=== PATIENT | female | born 1980 | race Caucasian/White ===

== ENCOUNTER → 2017-09-21 08:28 | Outpatient (CLI) | payer OTHER, SELFPAY ==
[2017-09-21 10:15] LABS: Absolute Lymphocyte Count 1.53 X10^3/ul (0.83-4.51); Absolute Neutrophil Count 3.9 X10^3/uL (2.0-7.7); Basophil# 0.01 X10^3/uL; Basophil% 0.2 % (0-1); Eosinophil# 0.33 X10^3/uL; Eosinophils% 5.4 % (0-5); Hematocrit 38.4 % (37-47); Hemoglobin 12.4 g/dl (12.0-15.0); Lymphocyte # 1.53 X10^3/ul (4.0); Lymphocyte % 25.1 % (19-41); Mean Corp Hgb Conc 32.3 g/gl (32-36); Mean Corpuscular Hgb 29.5 pg (27.0-32.0); Mean Corpuscular Volume 91.2 fL (81-99); Mean Platelet Vol. 11.4 fl (6.2-12.0); Monocyte# 0.36 X10^3/uL; Monocyte% 5.9 % (0-10); Neutrophil # 3.86 X10^3/uL (2.7-7.7); Neutrophil % 63.2 % (47-70); Platelet Count 264 K/mm3 (150-450); RBC Distribution Width CV 13.3 % (11.6-14.6); RBC Distribution Width SD 44.3 fl (35.1-43.9); Red Blood Count 4.21 M/mm3 (4.2-5.4); White Blood Count 6.1 K/mm3 (4.4-11.0)
[2017-09-21 10:17] LABS: POSITIVE COUNT NO; POSITIVE DIFFERENTIAL NO; POSITIVE MORPHOLOGY NO
[2017-09-21 10:51] LABS: ALB/GLOB Ratio 0.9 RATIO (0.9-2.4); AST(SGOT) 18 U/L (15-37); Alanine Aminotransfer ALT/SGPT 23 U/L (13-56); Albumin, Serum 3.5 g/dL (3.2-5.0); Alkaline Phosphatase 58 U/L (45-117); Anion Gap 11 (5-15); BUN 12 mg/dL (7-18); BUN/Creat Ratio 15.2 RATIO (10-20); Calcium,Total 8.6 mg/dL (8.5-10.1); Chloride 103 mmol/L (98-107); Cholesterol 147 mg/dL (200); Creatinine, Serum 0.79 mg/dL (0.55-1.02); EST Glomerular Filtration Rate 88 mL/min (>60); Est Glom Filt Rate - Afr Amer 107 mL/min (>60); Globulin 4.1 g/dL (2.2-4.2); Glucose 79 mg/dL (74-106); Potassium 3.8 mmol/L (3.5-5.1); Protein, Total 7.6 g/dL (6.4-8.2); Sodium Level 142 mmol/L (136-145); Thyroid Stim Hormone (TSH) 1.32 uIU/mL (0.358-3.74)
== END ==
PROVIDERS: Family Provider Family Medicine; PCP Family Medicine; Visit Provider Nurse Practitioner Family
DX: Z00.00 Encounter for general adult medical examination without abnormal findings (principal); R53.83 Other fatigue
CPT/HCPCS: 36415; 80053; 82465; 84443; 85025

== ENCOUNTER → 2018-03-29 07:05 | Outpatient (CLI) | payer OTHER, SELFPAY ==
--- NOTE | 2018-03-29 07:10 | BI_ITS ---
MAMMOGRAPHY - BILATERAL SCREENING REASON FOR EXAM: Female, 37 years old. Routine annual screening examination. PERTINENT HISTORY: Mother with breast cancer. Aunt with breast cancer. TECHNIQUE: Digital bilateral breast debra (3D mammographic acquisition) in the CC and MLO projections. 2-D mediolateral oblique (MLO) and craniocaudad (CC) views of both breasts were obtained. CAD: Full Field Digital Mammography with Computer Added Detection was performed. COMPARISON: None. Baseline examination. FINDINGS: Breast Composition: There are scattered areas of fibroglandular density. There is a 7 mm x 8 mm well-defined nodule in the superior lateral portion of the left breast. A central notch is seen. This may represent a small lymph node. Correlation with ultrasound is recommended. No other significant abnormalities are identified. BI/SCREENING MAMM (CAD), BILAT IMPRESSION: 7 mm x 8 mm nodule in the left breast as described. Correlation with ultrasound is recommended. ASSESSMENT CATEGORY: BIRADS Category 0: Incomplete. Need additional imaging evaluation. A letter regarding these results will be sent to the patient by the facility within 30 days. Approximately 10% of breast cancers are not detected by mammography. A normal mammogram should not delay biopsy of a clinically suspicious abnormality. [id number] Electronically Signed: Leonard Pedraza MD at 14:24 EST , Service support ,
== END ==
PROVIDERS: Family Provider Family Medicine; PCP Family Medicine; Referring Provider Obstetrics & Gynecology; Visit Provider Obstetrics & Gynecology
DX: Z12.31 Encounter for screening mammogram for malignant neoplasm of breast (principal); N64.4 Mastodynia; Z80.3 Family history of malignant neoplasm of breast
CPT/HCPCS: 77063; 77067

== ENCOUNTER → 2018-04-02 08:01 | Outpatient (CLI) | payer OTHER, SELFPAY ==
--- NOTE | 2018-04-02 08:03 | US_ITS ---
STUDY: ULTRASOUND BREAST - LEFT REASON FOR EXAM: Female, 37 years old. Abnormal screening mammogram. TECHNIQUE: Axial and longitudinal images of the LEFT breast were performed with a high resolution ultrasound transducer. COMPARISON: Comparison is made with prior mammogram dated March 29, 2018. FINDINGS: LEFT Breast: The palpable abnormality corresponds to a 1.2 cm x 0.8 cm x 0.5 cm hypoechoic nodule with central fatty hilum suggestive of a significant lymph node. This is at the 2:00 position of the breast at 2 cm from the nipple. A similar-appearing nodule measuring 1.2 cm x 0.5 cm x 0.5 cm seen at the 1:00 position of the breast at 3 cm from nipple. US/Breast Limited Unilateral IMPRESSION: Sonographic findings suggestive of 2 small lymph nodes. Routine annual mammographic follow-up recommended. ASSESSMENT CATEGORY: BIRADS Category 2: Benign. A letter regarding these results will be sent to the patient by the facility within 30 days. Electronically Signed: Leonard Pedraza MD at 13:24 EST , Service support ,
== END ==
PROVIDERS: Family Provider Family Medicine; PCP Family Medicine; Referring Provider Obstetrics & Gynecology; Visit Provider Obstetrics & Gynecology
DX: R92.8 Other abnormal and inconclusive findings on diagnostic imaging of breast (principal)
CPT/HCPCS: 76642

== ENCOUNTER → 2018-08-26 10:53 | Outpatient (CLI) | payer OTHER, SELFPAY ==
--- NOTE | 2018-08-26 11:30 | MRI_ITS ---
STUDY: BILATERAL BREAST MR WITHOUT AND WITH CONTRAST REASON FOR EXAM: Female, 37 years old. Strong family history of breast cancer in mother, sister and aunts. TECHNIQUE: Multi-sequence multi-echo imaging of both breasts was performed with a dedicated breast coil. T1-weighted and T2-weighted images were performed before the administration of contrast. T1-weighted images were also performed after the administration of 20 IV Dotarem without complications. COMPARISON: Mammograms dated March 29, 2018 and left breast ultrasound dated April 02, 2018. FINDINGS: RIGHT BREAST: The breast tissue is fatty with minimal background enhancement. There is an ovoid enhancing circumscribed mass measuring 6 mm x 3 mm in the upper outer quadrant of the right breast most compatible with a fibroadenoma. This mass has no aggressive features and I believe can be seen on the mammogram as an ill-defined partially obscured low density mass. There is also a 5 mm in diameter circumscribed mass in the medial aspect of the right breast approximately 3.2 cm behind the nipple and approximately 1 cm medial to the nipple. This also has the appearance of a fibroadenoma and likely is seen on the mammogram as a partially obscured low density mass. Attention to these 2 areas can be paid when the patient returns for her mammogram. The areas thought to represent these nonaggressive lesions has been circled on the mammograms. LEFT BREAST: The breast tissue is fatty with no background enhancement. There are no abnormal enhancing masses or areas of non-mass enhancement in the left breast. There are no enlarged or abnormal lymph nodes. There is no abnormality in the visualized regions of the chest or liver. MRI/Breast Bilateral W/O and W IMPRESSION: 2 circumscribed lesions in the right breast, one measuring 6 mm and one measuring 5 mm, likely representing small fibroadenomas. Attention to these areas when the patient returns for mammography is recommended. CATEGORY: BIRADS Category 3: Probably Benign - Short-Interval Follow-up Suggested. A letter regarding these results will be sent to the patient by the facility within 30 days. Electronically Signed: Gurmeet Haro MD at 18:45 EDT , Service support ,
== END ==
PROVIDERS: Family Provider Family Medicine; PCP Family Medicine; Referring Provider Obstetrics & Gynecology; Visit Provider Obstetrics & Gynecology
DX: Z80.3 Family history of malignant neoplasm of breast (principal)
CPT/HCPCS: 77049; A9575; A4216; C8908

== ENCOUNTER → 2018-09-09 10:56 | Outpatient (CLI) | payer BC, SELFPAY ==
[2018-09-07 15:53] VITALS: BMI 34.2
--- NOTE | 2018-09-09 11:02 | US_ITS ---
STUDY: ULTRASOUND BREAST - RIGHT REASON FOR EXAM: Female, 37 years old. Abnormal MRI of the breast. TECHNIQUE: Axial and longitudinal images of the RIGHT breast were performed with a high resolution ultrasound transducer. COMPARISON: Comparison is made with prior mammogram dated August 26, 2018. FINDINGS: RIGHT Breast: There is a 5 mm x 5 mm x 3 mm well-defined hypoechoic nodule in the retroareolar region of the right breast. This most likely advance a fibroadenoma. There is also evidence of a 7 mm x 4 mm x 3 mm hypoechoic nodule with a central echogenic hilum at the 9:00 position of the breast at 3 cm from nipple. This most likely represents a small lymph node. Dilated retroareolar ducts. US/Breast Limited Unilateral IMPRESSION: 5 mm x 5 mm x 3 mm well-defined hypoechoic nodule in the retroareolar region of the breast. This most likely represents a small fibroadenoma. Second nodule measuring 7 mm x 4 mm x 3 mm at the 9:00 position breast at 3 cm from the nipple most likely present and a small left Dilated subareolar ducts. ASSESSMENT CATEGORY: BIRADS Category 2: Benign. A letter regarding these results will be sent to the patient by the facility within 30 days. Electronically Signed: Leonard Pedraza, at 14:26 EDT , Service support ,
== END ==
PROVIDERS: Family Provider Family Medicine; PCP Family Medicine; Referring Provider Surgery; Visit Provider Surgery
DX: R92.8 Other abnormal and inconclusive findings on diagnostic imaging of breast (principal)
CPT/HCPCS: 76642

== ENCOUNTER → 2018-09-16 09:54 | Outpatient (CLI) | payer BC, SELFPAY ==
--- NOTE | 2018-09-16 | IMM_PTH ---
PATIENT: GUERRERO DAIGLE LOC: [facility] U#:[id number] AGE/SX: 44/F ROOM: RE09/16/[address]: Dr. Marcelino Guzmán MD : 1980 BED: DIS: SPEC #: [id number] RECD: 09/17/18 13:07 STATUS: BRET DANNY #: [id number] BERNICE: 09/16/18 00:[address]: Marcelino Guzmán DEPT: IMMUNOHISTOCHEMISTRY RECD BY: Riri Gregorio ENTERED: 09/17/18 13:08 SP TYPE: IMMUNO OTHR DR: Dr. Gopal Rose MD Tissues: A - Right breast, NOS B - Right breast, NOS Procedures: P53 (initial) CALPONIN-1 (add) CD20 (add) CD45 (add) CD5 (add) CD79A (add) P40 (add) CD3 (initial) PHYSICIAN & INSTITUTION [place] [id number] SPECIMEN INFORMATION: Tissue Source: A - Right breast tissue 9 o'clock, B - Right breast tissue 3 o'clock retroareolar Clinical Info: Abnormal right breast ultrasound Specimen Number: [id number] A & B CPT code: 70849 x2, 61248 x6 METHODOLOGY: Deparaffinized sections of prefer/formalin-fixed tissue or PAP/DQ stained slides are incubated with monoclonal/polyclonal antibodies/oligonucleotide probes. Localization is made via biotin free immunoperoxidase method. Appropriate controls are performed and reacted as expected. Results on target cell population are indicated in the following table: RESULTS: ANTIBODY / CLONE RESULT Block A CD3 (PS1) positive CD5 (SP10) positive CD20 (L26) positive, focal CD45 (RP2/18) positive CD79a (11E3) positive, focal Block B P53 (DO-7) negative Calponin-1 (DW616C) positive P40 (BC28) positive These tests were developed and their performance characteristics determined by [facility]. They may not have been cleared or approved by the [place]. Food and Drug Administration. The FDA has determined that such clearance or approval is not necessary. INTERPRETATION: A. Right breast tissue 9 o'clock, biopsy: Benign lymphoid tissue. B. Right breast tissue 3 o'clock retroareolar, biopsy: Consistent with adenosis. AM:whit 09/17/18
--- NOTE | 2018-09-16 08:20 | BRBX_PTH ---
PATIENT: GUERRERO DAIGLE LOC: [facility] U#:[id number] AGE/SX: 44/F ROOM: RE09/16/[address]: Dr. Marcelino Guzmán MD : 1980 BED: DIS: SPEC #: [id number] RECD: 09/16/18 09:41 STATUS: BRET DANNY #: [id number] BERNICE: 09/16/18 08:[address]: Marcelino Guzmán DEPT: SURGICAL PATHOLOGY RECD BY: Bg Mcgrath ENTERED: 09/16/18 11:30 SP TYPE: BREAST BX LAURA DR: Dr. Gopal Rose MD Tissues: A - Right breast, NOS B - Right breast, NOS Procedures: Surgery Specimen Level IV HEADER OPERATION: Right breast biopsy x2 PRE-OP DIAGNOSIS: Abnormal right breast ultrasound TISSUE SUBMITTED: A - Right breast tissue 9 o'clock, B - Right breast tissue 3 o'clock retroareolar MICROSCOPIC DIAGNOSIS A. Right breast at 9 o'clock, ultrasound-guided core biopsy: Benign lymphoid tissue with reactive change. See comment. B. Right breast tissue at 3 o'clock, retroareolar, ultrasound-guided core biopsy: Adenosis. Focal microcalcifications. Focal intraductal hyperplasia without atypia. Mild fibrocystic change. No evidence of malignancy. See comment. AM:whit 09/17/18 COMMENT A & B. Immunohistochemistry ([id number]) supports the above diagnosis. MICROSCOPIC DESCRIPTION Slides are reviewed. GROSS DESCRIPTION A - Received in fixative is one container labeled with the patient's name and designated right breast 9 o'clock. The specimen consists of multiple elongated fragments of martinez-yellow fibroadipose tissue that in aggregate measure 0.7 x 0.5 x 0.1 cm. The entire specimen is submitted in one cassette. B - Received in fixative is one container labeled with the patient's name and designated right breast 3 o'clock. The specimen consists of multiple elongated fragments of martinez-yellow fibroadipose tissue that in aggregate measure 1.5 x 0.2 x 0.1 cm. The entire specimen is submitted in one cassette. / KHALIF:whit 09/16/18 TC:5 CPT: 99493 x2
[2018-09-16 08:57] VITALS: BMI 34.2
== END ==
PROVIDERS: Family Provider Family Medicine; PCP Family Medicine; Referring Provider Surgery; Visit Provider Surgery
DX: R92.8 Other abnormal and inconclusive findings on diagnostic imaging of breast (principal)
CPT/HCPCS: 88305; 88341; 88342

== ENCOUNTER → 2019-09-09 08:50 | Outpatient (CLI) | payer BC, SELFPAY ==
[2018-09-16 08:57] VITALS: BMI 34.2
[2019-09-09 10:17] LABS: ALB/GLOB Ratio 0.8 RATIO (0.9-2.4); AST(SGOT) 35 U/L (15-37); Alanine Aminotransfer ALT/SGPT 75 U/L (13-56); Albumin, Serum 3.6 g/dL (3.2-5.0); Alkaline Phosphatase 69 U/L (45-117); Anion Gap 5 (5-15); BUN 12 mg/dL (7-18); CRP, High Sensitivity Cardiac 1.62 mg/L; Calcium,Total 8.9 mg/dL (8.5-10.1); Chloride 106 mmol/L (98-107); Cholesterol 170 mg/dL (200); Creatinine, Serum 0.92 mg/dL (0.55-1.02); EST Glomerular Filtration Rate 73 mL/min (>60); Est Glom Filt Rate - Afr Amer 88 mL/min (>60); Globulin 4.6 g/dL (2.2-4.2); Glucose 89 mg/dL (74-106); High Density Lipoprotein 60 mg/dL; Potassium 4.1 mmol/L (3.5-5.1); Protein, Total 8.2 g/dL (6.4-8.2); Sodium Level 138 mmol/L (136-145); Triglycerides 94 mg/dL; Very Low Density Lipoprotein 19 mg/dL (5-40)
== END ==
PROVIDERS: PCP Family Medicine; Referring Provider Family Medicine; Visit Provider Family Medicine
DX: R94.31 Abnormal electrocardiogram [ECG] [EKG] (principal); Z82.49 Family history of ischemic heart disease and other diseases of the circulatory system
CPT/HCPCS: 36415; 80053; 80061; 86141

== ENCOUNTER → 2019-09-15 09:08 | Outpatient (CLI) | payer BC, SELFPAY ==
[2018-09-16 08:57] VITALS: BMI 34.2
[2019-09-15 11:40] LABS: Hepatitis B Surface Antibody Non-Reactive; Hepatitis B Surface Antigen Non-Reactive (Nonreactive); Hepatitis C Antibody Non-Reactive (Nonreactive)
== END ==
PROVIDERS: PCP Family Medicine; Referring Provider Family Medicine; Visit Provider Family Medicine
DX: R79.89 Other specified abnormal findings of blood chemistry (principal)
CPT/HCPCS: 36415; 86706; 86803; 87340

== ENCOUNTER → 2023-06-03 | Outpatient (CLI) | payer BC, SELFPAY ==
[2023-06-03 16:48] LABS: Absolute Lymphocyte Count 2.28 X10^3/uL (0.83-4.51); Absolute Neutrophil Count 5.2 X10^3/uL (2.0-7.7); Basophil# 0.02 X10^3/uL; Basophil% 0.2 % (0-1); Eosinophil# 0.43 X10^3/uL; Eosinophils% 5.1 % (0-5); Hematocrit 38.9 % (37-47); Hemoglobin 12.3 g/dL (12.0-15.0); Lymphocyte # 2.28 X10^3/ul (0.83-4.51); Lymphocyte % 26.9 % (19-41); Mean Corp Hgb Conc 31.6 g/dL (32-36); Mean Corpuscular Hgb 27.6 pg (27.0-32.0); Mean Corpuscular Volume 87.2 fL (81-99); Mean Platelet Vol. 10.9 fl (6.2-12.0); Monocyte# 0.56 X10^3/uL; Monocyte% 6.6 % (0-10); NRBC Flagged by Analyzer 0 % (0-5); Neutrophil # 5.17 X10^3/uL (2.7-7.7); Neutrophil % 61.1 % (47-70); Platelet Count 338 K/mm3 (150-450); RBC Distribution Width CV 14.3 % (11.6-14.6); Red Blood Count 4.46 M/mm3 (4.2-5.4); White Blood Count 8.5 K/mm3 (4.4-11.0)
[2023-06-03 17:20] LABS: AST(SGOT) 23 U/L (15-37); Alanine Aminotransfer ALT/SGPT 27 U/L (13-56); Albumin, Serum 3.5 g/dL (3.2-5.0); Alkaline Phosphatase 75 U/L (45-117); Globulin 4.5 g/dL (2.2-4.2)
[2023-06-03 18:03] LABS: HIV - WCH Non-Reactive (Nonreactive); Hepatitis B Surface Antibody Non-Reactive; Hepatitis B Surface Antigen Non-Reactive (Nonreactive); Hepatitis C Antibody Non-Reactive (Nonreactive)
[2023-06-05 12:09] LABS: Hepatitis B Core Ab Total Negative (Negative); QNTFERON TB Mitogen Value > 10.00 IU/mL (.); QNTFERON TB Nil Value 0.03 IU/mL (.); QNTFERON TB1+ Ag Value 0.03 IU/mL (.); QNTFERON TB2+ Ag Value 0.04 IU/mL (.); QNTIFERON TB Positive Criteria Negative (Negative)
== END | disposition home or self-care (01) ==
PROVIDERS: PCP Family Medicine; Visit Provider Dermatology
DX: L40.0 Psoriasis vulgaris (principal); L40.4 Guttate psoriasis; D22.5 Melanocytic nevi of trunk; L82.1 Other seborrheic keratosis; Z71.89 Other specified counseling; Z79.899 Other long term (current) drug therapy
CPT/HCPCS: 36415; 80076; 85025; 86480; 86703; 86704; 86706; 86803; 87340

== ENCOUNTER → 2023-11-27 | Outpatient (CLI) | payer OTHER, SELFPAY ==
[2023-12-02 09:09] LABS: HPV APTIMA, High Risk Negative (Negative)
== END | disposition home or self-care (01) ==
LOC: LABSPEC 11:09
PROVIDERS: PCP Family Medicine; Referring Provider Advanced Practice Midwife; Visit Provider Advanced Practice Midwife
DX: Z12.4 Encounter for screening for malignant neoplasm of cervix (principal)
CPT/HCPCS: 87624; 88175; G0145

== ENCOUNTER → 2024-08-17 | Outpatient (CLI) | payer OTHER, SELFPAY ==
[2024-08-17 09:29] LABS: Hematocrit 39.7 % (37-47); Hemoglobin 12.7 g/dL (12.0-15.0); Immature Granulocytes Count 0.020 X10^3/uL (0.0-0.0); Mean Corp Hgb Conc 32.0 g/dL (32-36); Mean Corpuscular Volume 88.2 fL (81-99); Mean Platelet Vol. 10.8 fl (6.2-12.0); NRBC Flagged by Analyzer 0 % (0-5); Platelet Count 313 K/mm3 (150-450); RBC Distribution Width CV 13.9 % (11.6-14.6); RBC Distribution Width SD 44.8 fl (35.1-43.9); Red Blood Count 4.50 M/mm3 (4.2-5.4); White Blood Count 7.2 K/mm3 (4.4-11.0)
[2024-08-17 10:34] LABS: AST(SGOT) 22 U/L (<=31); Alanine Aminotransfer ALT/SGPT 19 U/L (<=34); Albumin, Serum 4.0 g/dL (3.5-5.0); Alkaline Phosphatase 83 U/L (35-104); Bilirubin, Direct 0.11 mg/dL (0.00-0.30); Globulin 3.7 g/dL (2.2-4.2)
[2024-08-23 17:08] LABS: QNTFERON TB Mitogen Value > 10.00 IU/mL (.); QNTFERON TB Nil Value 0.06 IU/mL (.); QNTFERON TB1+ Ag Value 0.07 IU/mL (.); QNTFERON TB2+ Ag Value 0.06 IU/mL (.); QNTIFERON TB Positive Criteria Negative (Negative)
== END | disposition home or self-care (01) ==
LOC: LAB 08:32
PROVIDERS: PCP Family Medicine; Referring Provider Dermatology; Visit Provider Dermatology
DX: Z79.899 Other long term (current) drug therapy (principal)
CPT/HCPCS: 36415; 80076; 85025; 86480